=== PATIENT | male | born 1995 | race Two or more races ===

== ENCOUNTER 2016-07-03 11:04 | Emergency (ER) | payer OTHER, MEDICAID ==
[2016-07-03] MEDS ORDERED: Ibuprofen TAB* 400 MG PO ONE ×2 (11:20)
[2016-07-03] MEDS ORDERED: Amoxicillin/Clavulanate TAB* 875 MG PO ONE ×2 (11:20)
--- NOTE | 2016-07-03 11:31 | ED ---
Lower Extremity - HPI Summary HPI Summary: Patient has a history of an ingrown toenail of his left great toe which he had surgically dealt with three years ago. Over the last few days he has had in increase in pain on the skin around the toe, to the point that last night at work he had to get off the foot. He notices mild redness without drainage or fever. - History of Current Complaint Chief Complaint: EDExtremityLower Stated Complaint: LEFT FOOT PAIN, INGROWN TOENAIL Time Seen by Provider: 07/03/16 11:14 Hx Obtained From: Patient Mechanism Of Injury: Unknown Onset/Duration: Days - 3 Severity Initially: Mild Severity Currently: Severe Pain Intensity: 8 Timing: Constant Location: Is Discrete @ - left great toe Character Of Pain: Sharp, Aching Associated Signs And Symptoms: Positive: Redness Aggravating Factor(s): Standing, Ambulation Alleviating Factor(s): Rest Able to Bear Weight: Yes - Allergies/Home Medications Allergies/Adverse Reactions: Allergies Allergy/AdvReac Type Severity Reaction Status Date / Time No Known Allergies Allergy Verified 07/03/16 11:11 PMH/Surg Hx/FS Hx/Imm Hx Previously Healthy: Yes Infectious Disease History: No Infectious Disease History: Denies: Traveled Outside the [place] in Last 30 Days - Family History Known Family History: Positive: None - Social History Occupation: Employed Full-time Lives: With Family Alcohol Use: Rare Substance Use Type: Reports: None Smoking Status (MU): Never Smoked Tobacco Review of Systems Negative: Fever, Chills Positive: Other - erythema medial aspect of great toe at the distal nail bed All Other Systems Reviewed And Are Negative: Yes Physical Exam Triage Information Reviewed: Yes Vital Signs On Initial Exam: Initial Vitals Temp Pulse Resp BP Pulse Ox 98.4 F 73 18 146/95 100 07/03/16 11:12 07/03/16 11:12 07/03/16 11:12 07/03/16 11:12 07/03/16 11:12 Vital Signs Reviewed: Yes Appearance: Positive: Well-Appearing, Well-Nourished, Pain Distress Skin: Positive: Warm, Skin Color Reflects Adequate Perfusion, Dry, Tender - erythema medial aspect of great toe at the distal nail bed, Soft Head/Face: Positive: Normal Head/Face Inspection Eyes: Positive: EOMI, DAVE, Conjunctiva Clear ENT: Positive: Hearing grossly normal Respiratory/Lung Sounds: Positive: Breath Sounds Present Cardiovascular: Positive: RRR Musculoskeletal: Positive: Strength/ROM Intact, Pain @ - erythema medial aspect of great toe at the distal nail bed Neurological: Positive: Sensory/Motor Intact, Alert, Oriented to Person Place, Time, NV Bundle Intact Distally, Abnormal Gait Psychiatric: Positive: Affect/Mood Appropriate AVPU Assessment: Alert Diagnostics - Vital Signs Vital Signs Temp Pulse Resp BP Pulse Ox 07/03/16 11:12 98.4 F 73 18 146/95 100 - Laboratory Lab Statement: Any lab studies that have been ordered have been reviewed, and results considered in the medical decision making process. Lower Extremity Course/Dx - Diagnoses Differential Diagnosis/HQI/PQRI: Positive: Bursitis, Cellulitis, Contusion, Gout , Infection, Sprain, Strain Provider Diagnoses: Ingrowing toenail with infection Discharge - Discharge Plan Condition: Stable Disposition: HOME Prescriptions: Amoxicillin/Clavulanate TAB* [Augmentin TAB 875*] 875 mg PO BID #13 tab Patient Education Materials: Ingrown Nail (ED) Referrals: Shay Fishman DPM [Doctor of Podiatric Medicine] - Additional Instructions: Take your antibiotics until they are completely gone. Use ibuprofen 800mg three times daily with meals for the next 3-5 days to decrease swelling and pain. Elevate your foot above your heart often to decrease swelling. Call the number provided to establish care with the therapeutic recreation assistant and follow-up with them as needed. Return to the emergency department if symptoms worsen.
[2016-07-03 11:36] VITALS: BP 118/74
== END 2016-07-03 11:33 | disposition home or self-care (01) ==
LOC: ED 11:04
DX: L03.032 Cellulitis of left toe (principal); L60.0 Ingrowing nail
CPT/HCPCS: 99282; A9270-GY